=== PATIENT | female | born 1975 | race African-American/Black ===

== ENCOUNTER 2022-04-19 13:34 | Outpatient (CLI) | payer BC | END 2022-04-19 13:35 | disposition home or self-care (01) | LOC: BICMAMMO 13:34 | PROVIDERS: ATTEND Nurse Practitioner Family | DX: Z12.31 Encounter for screening mammogram for malignant neoplasm of breast (principal) | CPT/HCPCS: 77063; 77067 ==

== ENCOUNTER 2023-05-04 08:06 | Emergency (ER) | payer BC ==
[2023-05-04 08:47] LABS: #Eosinphils 0.2 thou/uL (0.0-0.7); #Monocytes 0.4 thou/uL (0.11-0.59); #Neutrophils 3.9 thou/uL (1.40-6.50); %Basophils 0.5 % (0.0-1.0); %Eosinophils 2.9 % (0.0-10.0); %Monocytes 5.3 % (0.0-10.0); %Neutrophils 58.1 % (42.0-75.0); Hematocrit 38.4 % (36.0-47.0); Hemoglobin 12.4 g/dL (12.0-16.0); Mean Corpuscular HGB CONC 32.3 g/dL (32.0-36.0); Mean Corpuscular Hemoglobin 29.1 pg (27.0-31.0); Mean Corpuscular Volume 90.1 fl (78.0-98.0); Mean Platelet Volume 10.1 fL (7.4-10.4); Platelet Count 302 10x3/uL (130-400); RBC Distribution Width 12.9 % (11.5-14.5); Red Blood Cell (RBC) Count 4.26 mill/uL (4.20-5.40); White Blood Cell (WBC) Count 6.7 10x3/uL (4.8-10.8)
[2023-05-04 09:11] LABS: ALT (SGPT) 20 U/L (8-55); AST (SGOT) 17 U/L (5-34); Albumin 4.2 g/dL (3.5-5.0); Alkaline Phosphatase 75 U/L (40-110); Anion Gap 11 mmol/L (10-20); BUN (Urea Nitrogen) 19 mg/dL (7.0-18.7); Bilirubin, Total 0.7 mg/dL (0.2-1.2); Calc. Creatinine Clearance 0 mL/min (70-130); Calcium 9.2 mg/dL (7.8-10.44); Carbon Dioxide 24 mmol/L (22-29); Chloride 105 mmol/L (98-107); Estimated GFR 77; Globulin 2.9 g/dL (2.4-3.5); Glucose 103 mg/dL (70-105); Potassium 4.1 mmol/L (3.5-5.1); Protein, Total 7.1 g/dL (6.0-8.3); Sodium 136 mmol/L (136-145)
[2023-05-04 09:16] LABS: Troponin I Less than 0.010 ng/mL (< 0.028)
[2023-05-04] MEDS ORDERED: Ketorolac Tromethamine 30 MG/ML VIAL ONE (09:53)
== END 2023-05-04 10:02 | disposition home or self-care (01) ==
LOC: ERS 08:06
DX: M75.102 Unspecified rotator cuff tear or rupture of left shoulder, not specified as traumatic (principal); F17.290 Nicotine dependence, other tobacco product, uncomplicated
CPT/HCPCS: 36415; 71045; 80053; 84484; 85025; 93005; 96372; J1885

== ENCOUNTER 2023-05-13 15:47 | Outpatient (CLI) | payer BC | END 2023-05-13 15:48 | disposition home or self-care (01) | LOC: BICMAMMO 15:47 | PROVIDERS: ATTEND Nurse Practitioner Family | DX: Z12.31 Encounter for screening mammogram for malignant neoplasm of breast (principal) | CPT/HCPCS: 77063; 77067 ==

== ENCOUNTER 2024-05-29 11:04 | Outpatient (CLI) | payer BC | END 2024-05-29 11:05 | disposition home or self-care (01) | LOC: BICMAMMO 11:04 | DX: Z12.31 Encounter for screening mammogram for malignant neoplasm of breast (principal) | CPT/HCPCS: 77063; 77067 ==

== ENCOUNTER 2025-02-11 08:44 | Outpatient (CLI) | payer BC | END 2025-02-11 08:45 | disposition home or self-care (01) | LOC: BICRAD 08:44 | PROVIDERS: ATTEND Family Medicine | DX: M46.1 Sacroiliitis, not elsewhere classified (principal) | CPT/HCPCS: 72202 ==